=== PATIENT | female | born 1945 | race Caucasian/White ===

== ENCOUNTER 2018-08-02 17:49 | Emergency (ER) | payer BC ==
[~2018-08-02] VITALS: Ht 154.9 cm; Wt 65.8 kg
[2018-08-02] MEDS ORDERED: ACETAMINOPHEN 325 MG TABLET PO ONE (18:15)
[2018-08-02] MEDS ORDERED: ACETAMINOPHEN 325 MG TABLET ONE (18:22)
--- NOTE | 2018-08-02 18:26 | NUR ---
PT OUT OF ER FOR CT.
[2018-08-02 19:18] VITALS: BP 152/92
== END 2018-08-02 19:19 | disposition home or self-care (01) ==
LOC: ER 17:49
DX: S09.90XA Unspecified injury of head, initial encounter (principal); M54.5 Low back pain; R07.89 Other chest pain; I10 Essential (primary) hypertension; W01.0XXA Fall on same level from slipping, tripping and stumbling without subsequent striking against object, initial encounter; Y93.89 Activity, other specified; Y92.89 Other specified places as the place of occurrence of the external cause; Y99.8 Other external cause status
CPT/HCPCS: 70450; 71045; 99284; A4663

== ENCOUNTER 2018-09-02 20:51 | Emergency (ER) | payer BC ==
[~2018-09-02] VITALS: Ht 162.6 cm; Wt 68.0 kg
[2018-09-02] MEDS ORDERED: IBUPROFEN 800 MG TABLET ONE (21:49)
[2018-09-02] MEDS: IBUPROFEN 800 MG TABLET PO ONE (21:58)
--- NOTE | 2018-09-02 22:22 | NUR ---
Patient discharged to home in stable conditon. Written and verbal after care instructions given. Patient verbalizes understanding of instructions.
== END 2018-09-02 22:24 | disposition home or self-care (01) ==
LOC: ER 20:55
DX: S13.4XXA Sprain of ligaments of cervical spine, initial encounter (principal); I10 Essential (primary) hypertension; V49.60XA Unspecified car occupant injured in collision with unspecified motor vehicles in traffic accident, initial encounter; Y93.89 Activity, other specified; Y92.410 Unspecified street and highway as the place of occurrence of the external cause; Y99.8 Other external cause status
CPT/HCPCS: 72125; A4663

== ENCOUNTER 2019-03-31 14:00 | Emergency (ER) | payer BC ==
[~2019-03-31] VITALS: Ht 154.9 cm; Wt 68.9 kg
--- NOTE | 2019-03-31 14:16 | NUR ---
Patient in bed, no acute distress noted. VSS
--- NOTE | 2019-03-31 14:18 | NUR ---
Patient discharged to home in stable conditon. Written and verbal after care instructions given. Patient verbalizes understanding of instructions. ambulated from Er with stable gait. All belongings with patient.
[2019-03-31 14:19] VITALS: BP 113/80
== END 2019-03-31 14:19 | disposition home or self-care (01) ==
LOC: ER 14:00
DX: S80.02XA Contusion of left knee, initial encounter (principal); S00.03XA Contusion of scalp, initial encounter; I10 Essential (primary) hypertension; W01.198A Fall on same level from slipping, tripping and stumbling with subsequent striking against other object, initial encounter; Y93.89 Activity, other specified; Y92.89 Other specified places as the place of occurrence of the external cause; Y99.8 Other external cause status
CPT/HCPCS: A4663

== ENCOUNTER 2019-07-09 19:45 | Emergency (ER) | payer BC ==
[~2019-07-09] VITALS: Ht 154.9 cm; Wt 68.9 kg
--- NOTE | 2019-07-09 20:35 | NUR ---
PATIENT WAS MSE BY DR RASMUSSEN IN ROOM 03A. JOSELUIS A & O X3.
--- NOTE | 2019-07-09 22:10 | NUR ---
PATIENT NOTED WITH STEADY GAIT AMBULATED TO BATHROOM. NO C/O ANY PAIN. NO DIZZINESS.
--- NOTE | 2019-07-09 22:21 | NUR ---
DR RASMUSSEN SPOKE WITH PATIENT MADE HER AWARE OF TEST RESULTS.
[2019-07-09 22:41] VITALS: BP 147/79
--- NOTE | 2019-07-09 22:42 | NUR ---
Patient discharged to home in stable conditon. Written and verbal after care instructions given. Patient verbalizes understanding of instructions. Wound without any no drainage glue intact.
== END 2019-07-09 22:46 | disposition home or self-care (01) ==
LOC: ER 19:45
DX: S02.2XXA Fracture of nasal bones, initial encounter for closed fracture (principal); S01.21XA Laceration without foreign body of nose, initial encounter; S50.11XA Contusion of right forearm, initial encounter; I10 Essential (primary) hypertension; F32.9 Major depressive disorder, single episode, unspecified; W01.198A Fall on same level from slipping, tripping and stumbling with subsequent striking against other object, initial encounter; Y93.89 Activity, other specified; Y92.89 Other specified places as the place of occurrence of the external cause; Y99.8 Other external cause status
CPT/HCPCS: 70450; 70486; A4663